=== PATIENT | female | born 1950 | race Caucasian/White ===

== ENCOUNTER → 2020-02-05 | Outpatient (CLI) | payer OTHER ==
--- NOTE | 2020-02-25 17:18 | REP ---
CLINICAL: Sprain. Pain. TECHNIQUE: AP, lateral, bilateral oblique, and sunrise views of the left knee. FINDINGS: There is evidence for chondrocalcinosis, as well as calcified loose bodies primarily noted within the posterior aspect of the joint space and calcifications along the superior margin of the patella. An underlying joint effusion cannot be excluded. Findings may represent chronic osteoarthritic/inflammatory arthritic changes, as well as changes related to old injury. The visualized distal femur, tibia, and fibula demonstrate relatively normal contour without evidence for underlying injury. The tibial plateau demonstrates subtle increased sclerosis. The posterior patella also demonstrates increased subchondral sclerosis with minimal joint space narrowing. IMPRESSION: Changes related to osteoarthritic and inflammatory arthritic disease, as well as the possibility of sequela from prior injury. Clinical and physical correlation is recommended. No prior examination are available for comparison. [facility]
== END ==
LOC: M WUC 10:48
PROVIDERS: ATTEND Physician Assistant
DX: M11.262 Other chondrocalcinosis, left knee (principal); S83.412A Sprain of medial collateral ligament of left knee, initial encounter; X58.XXXA Exposure to other specified factors, initial encounter; Y92.89 Other specified places as the place of occurrence of the external cause

== ENCOUNTER 2023-01-06 11:52 | Emergency (ER) | payer OTHER ==
[~2023-01-06] VITALS: Ht 160 cm; Wt 47.3 kg
[2023-01-06 11:54] VITALS: TEMP 97.6
[2023-01-06] MEDS ORDERED: MEMA10TA19 PO (12:24)
[2023-01-06] MEDS ORDERED: MELO7.5T35 PO (13:54)
[2023-01-06 14:06] VITALS: BP 160/76; O2SAT 100
== END 2023-01-06 14:09 | disposition home or self-care (01) ==
LOC: M ED 11:52
DX: M17.12 Unilateral primary osteoarthritis, left knee (principal); Z79.899 Other long term (current) drug therapy